=== PATIENT | male | born 1980 | race Caucasian/White ===

== ENCOUNTER 2017-04-20 22:30 | Observation (INO) ==
[2017-04-20 23:39] LABS: Bilirubin,Urine Small (Negative); Blood,Urine Moderate (Negative); Clarity,Urine Cloudy (Clear); Color,Urine Dark Yellow (Yellow); Glucose,Urine (UA) Normal (Normal); Ketones,Urine Trace mg/dL (Negative); Leukocyte Esterase,Urine Trace (Negative); Nitrite,Urine Negative (Negative); Protein,Urine Trace mg/dL (Neg-Trace); Specific Gravity,Urine 1.022 (1.010-1.025); Urobilinogen,Urine Normal (Normal)
[2017-04-20 23:40] LABS: Bacteria,Urine None Seen per hpf (None-Few); Hyaline Casts,Urine Few per lpf (None-Few); Squamous Epithelial Cell,Urine Many per lpf (None-Few)
[2017-04-20 23:54] LABS: Hematocrit 43.4 % (37.5-50.1); Hemoglobin 14.3 g/dL (12.9-16.9); Immature Granulocytes % 0.2 % (0-4); Lymphocytes % 12.5 %; Mean Corpuscular HGB Conc 32.9 g/dL (31.6-35.5); Mean Corpuscular Hemoglobin 29.3 pg (28.0-33.3); Mean Corpuscular Volume 88.9 fL (83.0-100.0); Mean Platelet Volume 10.3 fL (9.4-12.4); Monocytes % 10.4 %; Platelet Count 182 K/mcL (140-400); Red Blood Count 4.88 M/mcL (4.19-5.50); Red Cell Distribution Width 12.6 % (11.5-14.5); Segmented Neutrophils % 75.1 %
[2017-04-20 23:55] LABS: Basophils % 0.4 %; Eosinophils # 0.1 K/mcL (0.0-0.6); Eosinophils % 1.4 %; Lymphocytes # 1.2 K/mcL (0.6-4.6); Neutrophils # 6.9 K/mcL (1.6-8.9)
[2017-04-21 00:07] LABS: INR 1.1; Prothrombin Time 11.7 Seconds (9.4-12.1)
[2017-04-21 00:09] LABS: Albumin 4.2 g/dL (3.5-5.0); Albumin/Globulin Ratio 1.4 (1.1-2.2); Bilirubin,Direct 0.5 mg/dL (0.0-0.5); Bilirubin,Total 1.5 mg/dL (0.2-1.2); Calcium 9.9 mg/dL (8.6-10.8); Potassium 4.3 mEq/L (3.5-4.5); Total Protein 7.2 g/dL (6.0-8.3)
--- NOTE | 2017-04-21 00:19 | Emergency Department Note ---
Disposition Clinical Impression: Kidney stone on right side, KVNG (acute kidney injury) Disposition: Admitted As Inpatient Condition: Fair Referrals: NO,PCP [Primary Care Provider] - Forms: Work/School Release, ED Satisfaction Letter Time of Disposition: 02:12 Abdominal Pain HPI - General Chief Complaint: ED Abdominal Pain Stated Complaint: right groin pain Time Seen by Provider: 04/20/17 23:04 Source: patient, family Mode of arrival: private vehicle Limitations: no limitations Nursing Notes Reviewed: Yes Vital Signs Reviewed: Yes - History of Present Illness HPI Narrative: A very pleasant 36-year-old male presents to the emergency department with complaint of right groin pain, right back pain and pain with urination. He denies any fever, chills, nausea or vomiting. He has not had any similar symptoms in the past. She denies any chest pain or shortness of breath. He has not been dizzy or lightheaded. Pt Subjective Complaint: abdominal pain, flank pain Onset (ago): day(s) Consistency: constant Pain Severity: severe Pain Scale: 9 Quality: aching Radiation: none Migration to: no migration Improves with: nothing Worsens with: nothing Associated symptoms: Reports: dysuria Treatments prior to arrival: NSAIDs - Related Data Allergies Allergy/AdvReac Type Severity Reaction Status Date / Time No Known Allergies Allergy Verified 04/20/17 22:43 All systems ED: reviewed and negative except as stated. Constitutional: Denies: fever, chills Cardiovascular: Denies: chest pain Respiratory: Denies: dyspnea Gastrointestinal: Reports: abdominal pain. Denies: nausea, vomiting Musculoskeletal: Reports: back pain Integumentary: Denies: rash, abrasion, lesions Neurological: Denies: headache Psychiatric: Denies: anxiety, depression, suicidal thoughts, homicidal thoughts Abdominal Pain PMH - Past Medical History Medical history: Reports: no medical history Male Surgical History: Reports: herniorrhaphy, other - Social History Smoking status: Never smoker Alcohol use: Reports: none Drug use: Reports: none Physical Exam - General Limitations: no limitations General appearance: alert, in no apparent distress - Head Head exam: atraumatic, normocephalic, normal inspection - Eye Eye exam: Present: normal appearance, PERRL - Neck Neck exam: Present: normal inspection, full ROM, trachea midline - Chest Chest inspection: Present: normal inspection, symmetric chest wall rise - Respiratory Respiratory exam: Present: normal lung sounds bilaterally. Absent: respiratory distress - Cardiovascular Cardiovascular exam: Present: regular rate, normal rhythm, normal heart sounds - Abdominal Exam Abdominal exam: Present: soft, tenderness. Absent: distention, guarding, rebound, rigidity Abdominal tenderness: Present: RLQ, mild - Extremities Exam Extremities exam: Present: normal inspection, full ROM. Absent: tenderness, pedal edema - Back Exam Back exam: Present: CVA tenderness (R) - Neurological Exam Neurological exam: Present: alert, oriented X3 - Psychiatric Psychiatric exam: Present: normal affect, normal mood - Skin Skin exam: Present: warm, dry, intact, normal color Course - Consultations Consultation #1: I discussed this patient's case with Dr. Washington, the patient will be admitted for ureteral stone removal. I discussed this with patient at the bedside he verbalizes understanding and agreement with plan of care. Patient currently resting comfortably. He denies any need for analgesics or antiemetics at this time. Time: 02:11 Vital Signs Temperature 97.9 F 04/20/17 22:40 Pulse Rate 66 04/20/17 22:40 Respiratory Rate 16 04/20/17 22:40 Blood Pressure 165/110 04/20/17 22:40 O2 Sat by Pulse Oximetry 99 04/20/17 22:40 Temperature 97.9 F 04/20/17 22:40 Pulse Rate 66 04/20/17 22:40 Respiratory Rate 16 04/20/17 22:40 Blood Pressure 165/110 04/20/17 22:40 O2 Sat by Pulse Oximetry 99 04/20/17 22:40 Oxygen Delivery Oxygen Delivery Room Air Abdominal Pain - Lab Data Lab results reviewed: Yes I reviewed the patient's lab results. Result diagrams: 04/20/17 23:48 04/20/17 23:48 Lab Results 04/20/17 04/20/17 04/20/17 Range/Units 23:30 23:48 23:48 WBC 9.2 (4.3-11.1) K/mcL RBC 4.88 (4.19-5.50) M/mcL Hgb 14.3 (12.9-16.9) g/dL Hct 43.4 (37.5-50.1) % MCV 88.9 (83.0-100.0) fL MCH 29.3 (28.0-33.3) pg MCHC 32.9 (31.6-35.5) g/dL RDW 12.6 (11.5-14.5) % Plt Count 182 (140-400) K/mcL MPV 10.3 (9.4-12.4) fL Immature Gran % 0.2 (0-4) % Seg Neutrophils % 75.1 % Lymphocytes % 12.5 % Monocytes % 10.4 % Eosinophils % 1.4 % Basophils % 0.4 % Neutrophils # 6.9 (1.6-8.9) K/mcL Lymphocytes # 1.2 (0.6-4.6) K/mcL Monocytes # 1.0 (0.0-1.3) K/mcL Eosinophils # 0.1 (0.0-0.6) K/mcL Basophils # 0.0 (0.0-0.2) K/mcL PT 11.7 (9.4-12.1) Seconds INR 1.1 APTT 33.0 (26.0-36.0) Seconds Sodium (136-145) mEq/L Potassium (3.5-4.5) mEq/L Chloride (98-109) mEq/L Carbon Dioxide (19-29) mEq/L BUN (8-26) mg/dL Creatinine (0.72-1.25) mg/dL Est GFR ( Amer) (> 60) Est GFR (Non-Af Amer) (> 60) BUN/Creatinine Ratio (6-26) Glucose (70-99) mg/dL Calculated Osmolality (280-300) Calcium (8.6-10.8) mg/dL Total Bilirubin (0.2-1.2) mg/dL Direct Bilirubin (0.0-0.5) mg/dL Indirect Bilirubin (0.0-1.2) mg/dL AST (5-34) Units/L ALT (0-55) Units/L Alkaline Phosphatase (38-126) Units/L Serum Total Protein (6.0-8.3) g/dL Albumin (3.5-5.0) g/dL Globulin (2.4-3.5) g/dL Albumin/Globulin Ratio (1.1-2.2) Amylase (25-125) Units/L Lipase (8-78) Units/L Urine Color Dark Yellow (Yellow) Urine Clarity Cloudy A (Clear) Urine pH 6.0 (5.0-8.0) pH Units Ur Specific [place] 1.022 (1.010-1.025) Urine Protein Trace (Neg-Trace) mg/dL Urine Glucose (UA) Normal (Normal) mg/dL Urine Ketones Trace H (Negative) mg/dL Urine Blood Moderate H (Negative) Urine Nitrite Negative (Negative) Urine Bilirubin Small H (Negative) Urine Urobilinogen Normal (Normal) mg/dL Ur Leukocyte Esterase Trace H (Negative) Urine Microscopic RBC 3-5 H (0-3) per hpf Urine Microscopic WBC 5-15 H (0-3) per hpf Ur Squamous Epith Cells Many H (None-Few) per lpf Urine Bacteria None Seen (None-Few) per hpf Hyaline Casts Few (None-Few) per lpf 04/20/17 Range/Units 23:48 WBC (4.3-11.1) K/mcL RBC (4.19-5.50) M/mcL Hgb (12.9-16.9) g/dL Hct (37.5-50.1) % MCV (83.0-100.0) fL MCH (28.0-33.3) pg MCHC (31.6-35.5) g/dL RDW (11.5-14.5) % Plt Count (140-400) K/mcL MPV (9.4-12.4) fL Immature Gran % (0-4) % Seg Neutrophils % % Lymphocytes % % Monocytes % % Eosinophils % % Basophils % % Neutrophils # (1.6-8.9) K/mcL Lymphocytes # (0.6-4.6) K/mcL Monocytes # (0.0-1.3) K/mcL Eosinophils # (0.0-0.6) K/mcL Basophils # (0.0-0.2) K/mcL PT (9.4-12.1) Seconds INR APTT (26.0-36.0) Seconds Sodium 141 (136-145) mEq/L Potassium 4.3 (3.5-4.5) mEq/L Chloride 104 (98-109) mEq/L Carbon Dioxide 26 (19-29) mEq/L BUN 28 H (8-26) mg/dL Creatinine 1.96 H (0.72-1.25) mg/dL Est GFR ( Amer) 47 L (> 60) Est GFR (Non-Af Amer) 39 L (> 60) BUN/Creatinine Ratio 14 (6-26) Glucose 105 H (70-99) mg/dL Calculated Osmolality 298 (280-300) Calcium 9.9 (8.6-10.8) mg/dL Total Bilirubin 1.5 H (0.2-1.2) mg/dL Direct Bilirubin 0.5 (0.0-0.5) mg/dL Indirect Bilirubin 1.0 (0.0-1.2) mg/dL AST 18 (5-34) Units/L ALT 13 (0-55) Units/L Alkaline Phosphatase 60 (38-126) Units/L Serum Total Protein 7.2 (6.0-8.3) g/dL Albumin 4.2 (3.5-5.0) g/dL Globulin 3.0 (2.4-3.5) g/dL Albumin/Globulin Ratio 1.4 (1.1-2.2) Amylase 43 (25-125) Units/L Lipase 19 (8-78) Units/L Urine Color (Yellow) Urine Clarity (Clear) Urine pH (5.0-8.0) pH Units Ur Specific [place] (1.010-1.025) Urine Protein (Neg-Trace) mg/dL Urine Glucose (UA) (Normal) mg/dL Urine Ketones (Negative) mg/dL Urine Blood (Negative) Urine Nitrite (Negative) Urine Bilirubin (Negative) Urine Urobilinogen (Normal) mg/dL Ur Leukocyte Esterase (Negative) Urine Microscopic RBC (0-3) per hpf Urine Microscopic WBC (0-3) per hpf Ur Squamous Epith Cells (None-Few) per lpf Urine Bacteria (None-Few) per hpf Hyaline Casts (None-Few) per lpf - Radiology Data Radiology results reviewed: Yes I reviewed the patient's radiology results.
[2017-04-21] MEDS ORDERED: 0.9 % Sodium Chloride 1,000 ML IVC ONE (00:47)
[2017-04-21] MEDS ORDERED: *HR* HYDROmorphone (PF) 1 MG/ML SYRINGE IVP PRN ×3 (02:13→09:58)
[2017-04-21] MEDS ORDERED: Naloxone 0.4 MG/ML INJ IVP PRN ×2 (02:13→09:58)
[2017-04-21] MEDS ORDERED: *HR* Morphine 2 MG/ML SYRINGE IVP PRN ×2 (02:13→09:58)
[2017-04-21] MEDS ORDERED: hydrALAZINE 25 MG TABLET PO PRN ×2 (02:13→09:58)
[2017-04-21] MEDS ORDERED: Ondansetron 4 MG/2 ML VIAL IVP PRN ×2 (02:13→09:58)
[2017-04-21] MEDS ORDERED: 0.9 % Sodium Chloride 1,000 ML IVC SCH ×2 (02:15→09:58)
--- NOTE | 2017-04-21 02:21 | Urology History & Physical ---
Date of Encounter: 04/21/17 Time of Encounter: 02:19 Assessment and Plan (1) Ureteral stone with hydronephrosis Current Visit: Yes Status: Acute the obstructing ureteral stone in the solitary kidney requires urgent surgical intervention. will proceed with stone extraction and stent LADI. this was discussed with the patient and he was in agreement. risks were discussed including stricture, injury to urinary tract, injury to solitary kidney. trial of passage not safe at this time. (2) KVNG (acute kidney injury) Current Visit: Yes Status: Acute should improve with hydration and stone removal. History of Present Illness Chief complaint: flank pain HPI: Mr. Franklin is a 36 year old male presents to the ED with flank pain. acute. ct scan reveals an 8 mm distal ureteral stone in a solitary kidney. Cr 1.95. no hx of stones. Past Med Surg Social Fam HX - Past Medical History Medical history: no medical history - Social History Smoking Status: Never smoker Smokeless Tobacco Status: No Alcohol use: none Drug use: none Medications and Allergies Allergies No Known Allergies Allergy (Verified 04/20/17 22:43) Review of Systems - Constitutional no chills, no fever(s) - EENT Nose, mouth and throat: no dizziness - Cardiovascular no chest pain - Respiratory no cough - Gastrointestinal abdominal pain, nausea - Genitourinary flank pain - Musculoskeletal back pain - Integumentary no erythema - Neurological no confusion - Psychiatric no anxiety - Hematologic/Lymphatic no easy bleeding - Allergic/Immunologic no throat swelling Exam Initial Vital Signs Temp Pulse Resp BP Pulse Ox 97.9 F 66 16 165/110 99 04/20/17 22:40 04/20/17 22:40 04/20/17 22:40 04/20/17 22:40 04/20/17 22:40 - General physical appearance Present: well developed, no distress - Eyes Present: PERRL - ENT Present: normal nares - Neck Present: no masses - Respiratory Present: normal respiratory effort - Abdomen Abdomen: Present: soft - Genitourinary normal penis with no external lesions - Integumentary Present: no rash, no growths, no abnormal pigmentation - Neurologic Present: normal coordination. Absent: disoriented, confused - Musculoskeletal Present: normal gait Urology Results - Labs 04/20/17 23:48 04/20/17 23:48 Abnormal lab results BUN 28 mg/dL (8-26) H 04/20/17 23:48 Creatinine 1.96 mg/dL (0.72-1.25) H 04/20/17 23:48 Est GFR ( Amer) 47 (> 60) L 04/20/17 23:48 Est GFR (Non-Af Amer) 39 (> 60) L 04/20/17 23:48 Glucose 105 mg/dL (70-99) H 04/20/17 23:48 Total Bilirubin 1.5 mg/dL (0.2-1.2) H 04/20/17 23:48 Urine Clarity Cloudy (Clear) A 04/20/17 23:30 Urine Ketones Trace mg/dL (Negative) H 04/20/17 23:30 Urine Blood Moderate (Negative) H 04/20/17 23:30 Urine Bilirubin Small (Negative) H 04/20/17 23:30 Ur Leukocyte Esterase Trace (Negative) H 04/20/17 23:30 Urine Microscopic RBC 3-5 per hpf (0-3) H 04/20/17 23:30 Urine Microscopic WBC 5-15 per hpf (0-3) H 04/20/17 23:30 Ur Squamous Epith Cells Many per lpf (None-Few) H 04/20/17 23:30 All other labs normal.
--- NOTE | 2017-04-21 02:38 | Emergency Department Note ---
Disposition Clinical Impression: Kidney stone on right side, KVNG (acute kidney injury) Disposition: Admitted As Inpatient Condition: Fair Abdominal Pain HPI - General Chief Complaint: ED Abdominal Pain Stated Complaint: right groin pain Time Seen by Provider: 04/20/17 23:04 Source: patient, family Mode of arrival: private vehicle Nursing Notes Reviewed: Yes Vital Signs Reviewed: Yes - History of Present Illness Pt Subjective Complaint: abdominal pain, flank pain Pain Severity: severe Pain Scale: 0 Quality: aching Migration to: no migration Improves with: nothing Worsens with: nothing Associated symptoms: Reports: dysuria - Related Data Allergies Allergy/AdvReac Type Severity Reaction Status Date / Time No Known Allergies Allergy Verified 04/20/17 22:43 Constitutional: Denies: fever, chills Cardiovascular: Denies: chest pain Respiratory: Denies: dyspnea Gastrointestinal: Reports: abdominal pain. Denies: nausea, vomiting Musculoskeletal: Reports: back pain Integumentary: Denies: rash, abrasion, lesions Neurological: Denies: headache Psychiatric: Denies: anxiety, depression, suicidal thoughts, homicidal thoughts Abdominal Pain PMH - Past Medical History Medical history: Reports: no medical history Male Surgical History: Reports: herniorrhaphy, other - Social History Smoking status: Never smoker Alcohol use: Reports: none Drug use: Reports: none Physical Exam - General Limitations: no limitations General appearance: alert, in no apparent distress Course Vital Signs Temperature 97.9 F 04/20/17 22:40 Pulse Rate 66 04/20/17 22:40 Respiratory Rate 16 04/20/17 22:40 Blood Pressure 165/110 04/20/17 22:40 O2 Sat by Pulse Oximetry 99 04/20/17 22:40 Temperature 97.9 F 04/20/17 22:40 Pulse Rate 67 04/21/17 02:17 Respiratory Rate 14 04/21/17 02:34 Blood Pressure 124/95 04/21/17 02:34 O2 Sat by Pulse Oximetry 99 04/20/17 22:40 Oxygen Delivery Oxygen Delivery Room Air Abdominal Pain - Lab Data Lab results reviewed: Yes I reviewed the patient's lab results. Result diagrams: 04/20/17 23:48 04/20/17 23:48 Lab Results 04/20/17 04/20/17 04/20/17 Range/Units 23:30 23:48 23:48 WBC 9.2 (4.3-11.1) K/mcL RBC 4.88 (4.19-5.50) M/mcL Hgb 14.3 (12.9-16.9) g/dL Hct 43.4 (37.5-50.1) % MCV 88.9 (83.0-100.0) fL MCH 29.3 (28.0-33.3) pg MCHC 32.9 (31.6-35.5) g/dL RDW 12.6 (11.5-14.5) % Plt Count 182 (140-400) K/mcL MPV 10.3 (9.4-12.4) fL Immature Gran % 0.2 (0-4) % Seg Neutrophils % 75.1 % Lymphocytes % 12.5 % Monocytes % 10.4 % Eosinophils % 1.4 % Basophils % 0.4 % Neutrophils # 6.9 (1.6-8.9) K/mcL Lymphocytes # 1.2 (0.6-4.6) K/mcL Monocytes # 1.0 (0.0-1.3) K/mcL Eosinophils # 0.1 (0.0-0.6) K/mcL Basophils # 0.0 (0.0-0.2) K/mcL PT 11.7 (9.4-12.1) Seconds INR 1.1 APTT 33.0 (26.0-36.0) Seconds Sodium (136-145) mEq/L Potassium (3.5-4.5) mEq/L Chloride (98-109) mEq/L Carbon Dioxide (19-29) mEq/L BUN (8-26) mg/dL Creatinine (0.72-1.25) mg/dL Est GFR ( Amer) (> 60) Est GFR (Non-Af Amer) (> 60) BUN/Creatinine Ratio (6-26) Glucose (70-99) mg/dL Calculated Osmolality (280-300) Calcium (8.6-10.8) mg/dL Total Bilirubin (0.2-1.2) mg/dL Direct Bilirubin (0.0-0.5) mg/dL Indirect Bilirubin (0.0-1.2) mg/dL AST (5-34) Units/L ALT (0-55) Units/L Alkaline Phosphatase (38-126) Units/L Serum Total Protein (6.0-8.3) g/dL Albumin (3.5-5.0) g/dL Globulin (2.4-3.5) g/dL Albumin/Globulin Ratio (1.1-2.2) Amylase (25-125) Units/L Lipase (8-78) Units/L Urine Color Dark Yellow (Yellow) Urine Clarity Cloudy A (Clear) Urine pH 6.0 (5.0-8.0) pH Units Ur Specific [place] 1.022 (1.010-1.025) Urine Protein Trace (Neg-Trace) mg/dL Urine Glucose (UA) Normal (Normal) mg/dL Urine Ketones Trace H (Negative) mg/dL Urine Blood Moderate H (Negative) Urine Nitrite Negative (Negative) Urine Bilirubin Small H (Negative) Urine Urobilinogen Normal (Normal) mg/dL Ur Leukocyte Esterase Trace H (Negative) Urine Microscopic RBC 3-5 H (0-3) per hpf Urine Microscopic WBC 5-15 H (0-3) per hpf Ur Squamous Epith Cells Many H (None-Few) per lpf Urine Bacteria None Seen (None-Few) per hpf Hyaline Casts Few (None-Few) per lpf 04/20/17 Range/Units 23:48 WBC (4.3-11.1) K/mcL RBC (4.19-5.50) M/mcL Hgb (12.9-16.9) g/dL Hct (37.5-50.1) % MCV (83.0-100.0) fL MCH (28.0-33.3) pg MCHC (31.6-35.5) g/dL RDW (11.5-14.5) % Plt Count (140-400) K/mcL MPV (9.4-12.4) fL Immature Gran % (0-4) % Seg Neutrophils % % Lymphocytes % % Monocytes % % Eosinophils % % Basophils % % Neutrophils # (1.6-8.9) K/mcL Lymphocytes # (0.6-4.6) K/mcL Monocytes # (0.0-1.3) K/mcL Eosinophils # (0.0-0.6) K/mcL Basophils # (0.0-0.2) K/mcL PT (9.4-12.1) Seconds INR APTT (26.0-36.0) Seconds Sodium 141 (136-145) mEq/L Potassium 4.3 (3.5-4.5) mEq/L Chloride 104 (98-109) mEq/L Carbon Dioxide 26 (19-29) mEq/L BUN 28 H (8-26) mg/dL Creatinine 1.96 H (0.72-1.25) mg/dL Est GFR ( Amer) 47 L (> 60) Est GFR (Non-Af Amer) 39 L (> 60) BUN/Creatinine Ratio 14 (6-26) Glucose 105 H (70-99) mg/dL Calculated Osmolality 298 (280-300) Calcium 9.9 (8.6-10.8) mg/dL Total Bilirubin 1.5 H (0.2-1.2) mg/dL Direct Bilirubin 0.5 (0.0-0.5) mg/dL Indirect Bilirubin 1.0 (0.0-1.2) mg/dL AST 18 (5-34) Units/L ALT 13 (0-55) Units/L Alkaline Phosphatase 60 (38-126) Units/L Serum Total Protein 7.2 (6.0-8.3) g/dL Albumin 4.2 (3.5-5.0) g/dL Globulin 3.0 (2.4-3.5) g/dL Albumin/Globulin Ratio 1.4 (1.1-2.2) Amylase 43 (25-125) Units/L Lipase 19 (8-78) Units/L Urine Color (Yellow) Urine Clarity (Clear) Urine pH (5.0-8.0) pH Units Ur Specific [place] (1.010-1.025) Urine Protein (Neg-Trace) mg/dL Urine Glucose (UA) (Normal) mg/dL Urine Ketones (Negative) mg/dL Urine Blood (Negative) Urine Nitrite (Negative) Urine Bilirubin (Negative) Urine Urobilinogen (Normal) mg/dL Ur Leukocyte Esterase (Negative) Urine Microscopic RBC (0-3) per hpf Urine Microscopic WBC (0-3) per hpf Ur Squamous Epith Cells (None-Few) per lpf Urine Bacteria (None-Few) per hpf Hyaline Casts (None-Few) per lpf - Radiology Data Radiology results reviewed: Yes I reviewed the patient's radiology results. 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 Acute right obstructive uropathy. A 6 mm x 8 mm calculus in the distal right ureter 2-3 cm proximal to the UVJ may ball/valve in the UVJ as above. Bilateral L5 spondylolysis with minimal L5-S1 spondylolisthesis. Cholelithiasis. D/ / Luciano Parnell MD / Luciano Parnell MD Interpreting Provider: Luciano Parnell MD Attestation Statement - Attestation Attestation: I, Aric Aguilar MD, personally evaluated this patient and discussed their management with the midlevel provicer, PAC/PROOF OPERATOR. I reviewed the midlevel provider 's note and agree with the documented findings, medical decision making, and plan of care. 36-year-old male presents to the emergency department with a complaint of right groin pain. Patient states about 2 months ago at work he was stretching lifting something upward and felt a pull in the right groin. He had pain for a few days which went away with Motrin. Then about a month ago the pain returned for a few days and again resolved with Motrin. She developed some pain yesterday with dysuria. The pain became acutely worse tonight and he rated it a 10 out of 10. Pain in the right groin and inguinal region and radiating to the right flank. Nausea but no vomiting with the pain. Diaphoresis. No prior history kidney stones. He does complain of some dysuria but no gross hematuria. On examination patient is a well-developed well-nourished well-appearing male in no acute distress. He is alert and oriented 3. There is no cyanosis or diaphoresis. Breath sounds are clear and equal bilaterally. Heart regular rate and rhythm. Abdomen is soft with normal bowel sounds. There is some tenderness in the medial right frontal region with no palpable hernia. No testicular tenderness or epididymal tenderness. There is marked right CVA tenderness. Labs reviewed. CT shows congenital absence of the left kidney which patient was not aware of. It shows a 6 x 8 mm stone in the distal right ureter with right hydroureteronephrosis. The urologist, Dr. Washington, was consulted and accepted admission of the patient.
--- NOTE | 2017-04-21 07:14 | Anesthesia Evaluation PreOp ---
Date of Encounter: 04/21/17 Time of Encounter: 07:12 - Past History Planned Operation: R USE with stent Cardiac History: Denies any Significant Hx Pulmonary History: Denies Any Significant HX TOE FORMER STITCHDOWNS History: Denies Any Significant HX Other Medical History: Renal (navid, congenitally absent l kidne) Anesthesia History: No Prior Anesthetic Complications, Past Anesthesia (hernia) Alcohol Use: none Drug use: none Medications and Allergies Allergies No Known Allergies Allergy (Verified 04/20/17 22:43) - Meds/Allergy Pre-op Review Medications Reviewed: Yes Allergies Reviewed: Yes Beta Blockers on Current Med List: No Anesthesia Results - Labs 04/20/17 23:48 04/20/17 23:48 Anesthesia Exam Height: 1.83 Weight: 89 NPO (# of Hours): >8 - HEENT Pupil (Motor): Pupils equal, EOMI Mallampati: III Teeth: Normal Oral Opening: Less than or equal to 3 (poor underbite) - TOE FORMER STITCHDOWNS LOC: Oriented TOE FORMER STITCHDOWNS Motor: Normal RUE, Normal LUE, Normal RLE, Normal LLE, Normal Face TOE FORMER STITCHDOWNS Sensory: Normal: RUE, LUE, RLE, LLE, Face - Cardiac Rhythm: Regular Murmur: None - Pulmonary Breath Sounds: bilateral Clear Respiratory Effort: Symmetrical Anesthesia Assess/Plan ASA Score: 1 Modified [place] Scale for Level of Consciousness: Cooperative, oriented, and tranquil Anesthetic Plan: General Monitoring Plan: Standard Monitors Recovery Plan: PACU
[2017-04-21] MEDS ORDERED: *HR* FentaNYL (PF) 100 MCG/2 ML VIAL ONE (07:24)
[2017-04-21] MEDS ORDERED: *HR* Propofol 200 MG/20 ML VIAL IVP ONE (07:24)
[2017-04-21] MEDS ORDERED: Dexamethasone 4 MG/ML VIAL ONE (07:25)
[2017-04-21] MEDS ORDERED: Lidocaine -MPF 2% 2 ML VIAL ONE (07:25)
[2017-04-21] MEDS ORDERED: Ondansetron 4 MG/2 ML VIAL ONE (07:25)
[2017-04-21] MEDS ORDERED: Ringers Solution, Lactated 1,000 ML IVC SCH ×2 (07:35→09:58)
[2017-04-21] MEDS ORDERED: *HR* Promethazine 25 MG/ML VIAL IVP PRN (07:56)
--- NOTE | 2017-04-21 08:02 | Discharge Summary ---
Date of Encounter: 04/21/17 Time of Encounter: 08:00 - Discharge Diagnosis (1) Ureteral stone with hydronephrosis Priority: Primary Status: Resolved (2) KVNG (acute kidney injury) Priority: Secondary Status: Acute - Discharge Medications Prescriptions: HYDROcodone/Acet 10/325 mg [[place] 10-325 mg] 1 tab PO Q4HR PRN #20 tab PRN Reason: Pain Home Medications: HYDROcodone/Acet 10/325 mg [[place] 10-325 mg] 1 tab PO Q4HR PRN #20 tab 04/21/17 [Rx] Allergies/Adverse Reactions: Allergies No Known Allergies Allergy (Verified 04/20/17 22:43) Labs on day of discharge: Labs from last 24 hours 04/21/17 05:35 POC Glucose 104 H Date of admission: 04/21/17 02:12 Primary care physician: PCP GIGI Discharging clinician: Aleksander Washington Anticipated date of discharge: 04/21/17 - Patient Status Disposition: Home, Self-Care Condition: Good Functional capacity at discharge: independent ambulation Overall status at discharge: patient is progressing back to baseline - Discharge Instructions Follow Up With: GIGI,PCP [Primary Care Provider] - Aleksander Washington MD [Partnered Physician] - (1.5 weeks for office cystoscopy and stent removal) Additional Instructions: expect stent discomfort including urgency, frequency, burning, blood in the urine, and flank pain during urination. This is normal. call if symptoms are excessive or fever or 101 avoid all NSAIDS - motrin, advil, aspirin, etc. stay hydrated with water. - Diet and Activity Activity: other (OK to give work excuse for as long as needed. ) Diet: advance to your usual diet - Hospital Course Hospital course: Mr. Franklin is a 36 year old male admitted with an obstructing ureteral stone in a solitary kidney. Cr 1.97. s/p successful stone extraction and stent placement. OK for discharge today if pain controlled and vitals stable. - Time Spent with Patient Total time spent providing and/or coordinating discharge services: Less than 30 minutes Exam Initial Vital Signs Temp Pulse Resp BP Pulse Ox 97.9 F 66 16 165/110 99 04/20/17 22:40 04/20/17 22:40 04/20/17 22:40 04/20/17 22:40 04/20/17 22:40 - General physical appearance Present: well developed, no distress
--- NOTE | 2017-04-21 08:08 | Operative Note ---
Date of procedure: 04/21/17 Pre-op diagnosis: right ureteral stone in a solitary kidney Post-op diagnosis: same Procedure: right ureteroscopic stone extraction wih holmium laser lithotripsy right RPG right JJ stent. Anesthesia: GETA Surgeon: Aleksander Washington Estimated blood loss (cc): 0 Specimen: stone Condition: stable Disposition: PACU Procedure in Detail: PROCEDURE IN DETAIL: Patient was taken back to the operating room, positioned supine on the operating table. Anesthesia was applied without complication. They were moved into dorsal lithotomy. Careful attention was maintained to cushion all pressure points for patient's safety. They were prepped and draped in sterile fashion. Time-out was performed with the proper patient and procedure. A 21-Austrian rigid cystoscope was inserted into the bladder without difficulty. Systematic examination of bladder revealed no abnormalities. The ureteral orifice was cannulated using a 5-Austrian ureteral Catheter and a retrograde pyelogram was performed using Isovue. A filling defect was identified which corresponded to the stone. At that point, a zip wire was placed through the 5-Austrian and confirmed in the renal pelvis with fluoroscopy. A semi-rigid ureteroscope was carefully inserted into the bladder and guided into the ureteral oriface. At that point, the stone was encountered and I felt that it required fragmentation for safe extraction. A 200 micron holmium laser fiber on a setting of 8 and 800 was used to fragment the stone into multiple pieces. The fragments were individually basketed out of the ureter with a 1.9 tipless basket. All stone in the ureter was removed. A 4.8 x 26 ureteral stent was placed over the zip wire under fluoroscopy without complication. The bladder was drained along with the stone fragments. They were collected and sent for stone analysis. No string was left attached to the stent.s
--- NOTE | 2017-04-21 09:14 | Anesthesia Evaluation Post Op ---
Date of Encounter: 04/21/17 Time of Encounter: 09:13 - Vital Signs Vital Signs: Vital Signs/O2 Sat/Glucose, Most Current Temp Pulse Resp BP Pulse Ox 04/21/17 09:09 62 18 119/82 98 04/21/17 08:59 65 12 119/83 98 04/21/17 08:49 98.3 F 66 8 107/67 98 - Lungs Lungs: Clear Ascult./Percussion - Airway Airway: Non-obstructed - Cardiovascular Regular Rate - Mental Status Mental Status: Alert & Oriented, Answers Appropriately - Pain Pain Scale: 0 - Nausea Vomiting Nausea Vomiting: Not Present - Hydration Hydration: Tolerates oral liquids - Discharge PostOp Status: Transfer Patient to floor
[2017-04-21] MEDS ORDERED: *HR* HYDROcodone/Acet 10/325 mg TABLET PO PRN (09:58)
[2017-04-21 11:59] VITALS: BP 120/74
--- NOTE | 2017-04-23 08:11 | Electrocardiograph Report ---
[address] [address] Test Date: 2017-04-21 Pat Name: Junior Franklin Department: 104 Room: 3A22 Gender: M Convalescent Sitter: : 1980 Requested By: Aleksander Washington Order Number: [id number] Reading MD: Elvis Reddy MD Measurements Intervals [place] Rate: 56 P: 34 CO: 168 QRS: 23 QRSD: 92 T: 16 QT: 391 QTc: 383 Interpretive Statements SINUS BRADYCARDIA WITH SINUS ARRHYTHMIA Electronically Signed On 04-23-2017 8:09:40 EDT by Elvis Reddy MD
== END 2017-04-21 15:50 | disposition home or self-care (01) ==
LOC: 3ANU 22:30 → EMEROO 22:30 → 3ANU 04-21 02:45
PROVIDERS: ADMIT Urology; ATTEND Urology